=== PATIENT | female | born 1980 | race African-American/Black ===

== ENCOUNTER 2017-03-25 21:23 | Emergency (ER) | payer OTHER ==
[~2017-03-25] VITALS: Ht 180.3 cm; Wt 147.2 kg
[~2017-03-25 21:23] MED LIST: AEROECLIPSE1 EACH MC; ANAPROX DS550 M1 PO; BACTRIM,SEPT1 TABLET PO; BENADRYL50 MG PO; CETIRIZINE HCL10 M2 PO; CIPRO250 MG PO; ESCITALOPRAM OX20 MG; LEVOTHYROXINE175 MCG; LEXAPRO; LISINOPRIL5 MG PO; METFORMIN; METFORMIN HCL1000 M1 PO; METFORMIN HCL500 MG PO; NAPROXEN500 MG PO; PREDNISONE20 MG PO; PREDNISONE50 MG PO; PROVENTIL,2.5 MG/3 M IH; SIMVASTATIN; SPRINTEC1 EACH PO; SYMBICORT60 INHALA1 IH; SYNTHROID; SYNTHROID300 MCG PO; ULTRAM50 MG PO; VENTOLIN HFA18 GM IH; ZANTAC150 MG PO; ZITHROMAX250 MG PO; ZOCOR40 MG PO; ZYRTEC1 MG/1 ML PO
[2017-03-25 23:24] VITALS: BP 141/93
== END 2017-03-25 23:25 | disposition home or self-care (01) ==
LOC: EME → EDBD 21:23 → EDSEX 21:23 → EME 21:23
DX: F32.9 Major depressive disorder, single episode, unspecified (principal); E78.5 Hyperlipidemia, unspecified; J45.909 Unspecified asthma, uncomplicated; E03.9 Hypothyroidism, unspecified; Z87.891 Personal history of nicotine dependence
CPT/HCPCS: 90837; 99281; 99285

== ENCOUNTER 2018-03-23 22:33 | Emergency (ER) | payer OTHER ==
[~2018-03-23] VITALS: Ht 180.3 cm; Wt 149.5 kg
[2018-03-23] MEDS ORDERED: ZOFRAN4 MG PO (23:39)
[2018-03-23 23:54] VITALS: BP 162/98
== END 2018-03-23 23:55 | disposition home or self-care (01) ==
LOC: EME 22:33
DX: S00.03XA Contusion of scalp, initial encounter (principal); Y04.8XXA Assault by other bodily force, initial encounter; Y07.03 Male partner, perpetrator of maltreatment and neglect; J45.909 Unspecified asthma, uncomplicated; E78.5 Hyperlipidemia, unspecified; E03.9 Hypothyroidism, unspecified; Z87.891 Personal history of nicotine dependence; Z88.0 Allergy status to penicillin
CPT/HCPCS: 99281; 99283